=== PATIENT | male | born 1950 | race Native Hawaiian/Other Pacific Islander ===

== ENCOUNTER 2022-05-27 10:47 | Outpatient (CLI) | payer OTHER | END 2022-05-27 20:00 | disposition home or self-care (01) | LOC: US 10:47 | PROVIDERS: ATTEND Registered Nurse | DX: R22.2 Localized swelling, mass and lump, trunk (principal) ==

== ENCOUNTER 2023-03-24 11:00 | Outpatient (CLI) | payer OTHER | END 2023-03-24 22:11 | disposition home or self-care (01) | LOC: RAD 11:00 | PROVIDERS: ATTEND Nurse Practitioner Family | DX: M06.4 Inflammatory polyarthropathy (principal); M25.50 Pain in unspecified joint; R70.0 Elevated erythrocyte sedimentation rate; R76.0 Raised antibody titer; R79.82 Elevated C-reactive protein (CRP) ==